=== PATIENT | female | born 1990 | race Caucasian/White ===

== ENCOUNTER 2017-05-31 22:56 | Observation (INO) | payer OTHER ==
[~2017-05-31] VITALS: Ht 160 cm; Wt 97.5 kg
[~2017-05-31 22:56] MED LIST: DOCU240C67 PO; FERR-53 PO; IBUP600T22 PO; IRON18TA2 PO; Lanolin TP; PREN-127 PO; TUCKS TP
[2017-05-31] MEDS ORDERED: OXYTOCIN 30 UNIT/D5LR 500 ML 500 ML IV PRN (23:07)
[2017-05-31] MEDS ORDERED: FAMOTIDINE(*) 20MG/50ML PREMIX 50 ML IVPB PRN (23:07)
[2017-05-31] MEDS ORDERED: LR(*) 1000 ML BAG 1,000 ML IV SCH (23:07)
[2017-05-31] MEDS ORDERED: ceFAZolin(*) 2GM/D5W 50ML 50 ML IVPB PRN (23:07)
[2017-05-31 23:10] VITALS: BP 141/85; Ht 160 cm; Wt 97.5 kg
[2017-05-31] MEDS ORDERED: LIDOCAINE 1% LOCAL 300 MG/30ML INJ PRN (23:10)
[2017-05-31] MEDS ORDERED: FLUSH 10 ML SYR IVP PRN (23:10)
[2017-05-31] MEDS ORDERED: METOCLOPRAMIDE 10 MG/2 ML SDV IVP PRN (23:10)
[2017-05-31] MEDS ORDERED: fentaNYL CITR 100 MCG/2 ML AMP IVP PRN (23:10)
[2017-05-31] MEDS ORDERED: LIDOCAINE/SOD BICARB 8.4% SYR SC PRN (23:10)
[2017-06-01 03:46] LABS: PLATELET COUNT, AUTOMATED 267 K/uL (150-450)
--- NOTE | 2017-06-01 06:41 | History & Physical ---
History of Present Illness EDC per LMP: May 31, 2017 Estimated Gestational Age: 40.1 Chief Complaint Contractions History of Present Illness 27yo at 40w1d presents for possible labor. She reports UCx since yesterday afternoon. Overnight they became regular and strong. She arrived to L&D around midnight and was damian every 3-5 minutes. These seem to have become less frequent and less strong recently. She denies LOF or VB. Good FM. No preeclampsia symptoms. History Patient's Blood Type: A Negative Rubella Status: Immune Group B Strep Screen: Negative Obstetrical History: G1: 39wk G2: Current Past Medical History: PMH: Migraines, ADHD PSH: T&A Allergies: Coded Allergies: No Known Drug Allergies (Unverified , 09/05/15) Social History: , present and supportive. No noxious habits. Med Rec Home Meds Reported Medications Vits W-Ca,Fe,Fa(<1MG) ( VITAMINS) 1 Each Tablet, 1 EACH PO DAILY, TAB 09/05/15 Discontinued Scripts [Lanolin] 7 GM OINT No Conflict Check, 0 GM TP PRN Y for DISCOMFORT FOR NURSING MOTHERS, TUBE Prov:JUANITA MENJIVAR MD 09/06/15 Ibuprofen (IBUPROFEN) 600 Mg Tablet, 600 MG PO Q6H Y for PAIN for 10 Days, TAB Prov:JUANITA MENJIVAR MD 09/06/15 Glycerin/Witch [place] (PREPARATION H) 1 Pkg Pad, 0 PKG TP PRN Y for PAIN for 10 Days, PAD Prov:JUANITA MENJIVAR MD 09/06/15 Ferrous Sulfate (FERROUS SULFATE) 325 Mg Tablet, 325 MG PO BID for 60 Days, TAB Prov:JUANITA MENJIVAR MD 09/06/15 Docusate Calcium (DOCUSATE CALCIUM) 240 Mg Capsule, 240 MG PO BID for 10 Days, CAPSULE Prov:JUANITA MENJIVAR MD 09/06/15 Review of Systems Constitutional: No Fever Eyes: No Vision Change Cardiovascular: No Chest Pain Respiratory: No Shortness of Breath, No Cough Gastrointestinal: No Nausea, No Vomiting, No Diarrhea Genitourinary: No Dysuria Psychiatric: No Depression Exam General Exam Vital Signs Vital Signs Date Time Temp Pulse Resp B/P (MAP) Pulse Ox O2 Delivery O2 Flow Rate FiO2 05/31/17 23:10 98.1 107 20 141/85 (103) 91 Room Air General Apperance: Alert/Awake/No Acute Distress Neuro: No Gross deficits Eyes: Normal Extraocular Movement & Vison Cardiovascular: Regular Rate and Rhythm Respiratory: No Respiratory Distress Abdomen: Gravid - Non-Tender : Normal Musculoskeletal: No Weakness/Pain Extremities: No Cyanosis,Clubbing or Edema Integumentary: Skin Intact without Lesions or Rash Psychological: Alert & Oriented X3, Appropriate Mood & Affect Cervical Dialation: 4 Cervical Effacement (%): 50 Cervical Consistency: Soft Cervical Position: Mid Station: -1 Presentation: Vertex Uterine Contractions(Q min): 7 Uterine Contraction Strength: Moderate UC Resting Tone: Soft Fetus Feeling Movement?: Yes FHT Category: I Medical Decision Making Data Points Result Diagram: 06/01/17 0330 Pre-Admit Course Medical Record Review: Yes VTE Prophylasis: Adult Deep Vein Thrombosis/Pulmonary: No Pharmacological Contraindicati: Pt at Low Risk for VTE Mechanical Contraindications: Pt at Low Risk for VTE Assessment and Plan Problems: (1) Uterine contractions during Assessment & Plan: 27yo at 40w1d here for possible labor. Her contractions have spaced out. Will monitor this morning. If her contractions subside and her FHT are reassuring, will consider discharge. Otherwise, if she transitions will anticipate . (2) 40 weeks gestation of JOSE JUAREZ MD Jun 01, 2017 06:40
--- NOTE | 2017-06-01 19:44 | Labor Progress Note ---
Labor Subjective Progress Notes Subjective At 9:30AM today, the patient requested to be discharged to home since her contractions slowed down significantly. She denied VB, LOF. Reported good FM. She had no other concerns, except that she wanted to be considered for induction later this week. Labor Objective Vital Signs Vital Signs Date Time Temp Pulse Resp B/P (MAP) Pulse Ox O2 Delivery O2 Flow Rate FiO2 05/31/17 23:10 98.1 107 20 141/85 (103) 91 Room Air Cervical Dialation: 4 Cervical Effacement (%): 50 Cervical Consistency: Soft Cervical Position: Posterior Station: -1 Presentation: Vertex Uterine Contractions(Q min): 10 Fetus FHT Category: I Other Result Diagram: 06/01/17 0330 Assessment and Plan Problems: (1) Uterine contractions during Assessment & Plan: Pt's contractions slowed down significantly and were no longer painful. She requested discharge to home. She also would like to be set up for induction on 06/06/17. RN was going to follow up on organizing this tomorrow during the work week. Labor precautions discussed. (2) 40 weeks gestation of Copies to: LORELEI DREW MD, KIM N MD Jun 01, 2017 19:44
== END 2017-06-01 10:05 | disposition home or self-care (01) ==
LOC: OB 22:56 → INTOOBSV 22:56 → OB 22:56 → UNDOADMOB 22:56 → UNDODISOB 06-01 10:05
PROVIDERS: ADMIT Obstetrics & Gynecology; ATTEND Obstetrics & Gynecology
DX: O47.1 False labor at or after 37 completed weeks of gestation (principal); Z3A.40 40 weeks gestation of pregnancy
CPT/HCPCS: 85025; 86850; 86900; 86901; G0378; G0379

== ENCOUNTER 2017-06-02 23:24 | Inpatient (IN) | payer OTHER ==
[~2017-06-02] VITALS: Ht 160 cm; Wt 97.5 kg
[2017-06-02] MEDS ORDERED: LR(*) 1000 ML BAG 1,000 ML IV PRN (23:25)
[2017-06-02] MEDS ORDERED: FAMOTIDINE(*) 20MG/50ML PREMIX 50 ML IVPB PRN (23:27)
[2017-06-02] MEDS ORDERED: ceFAZolin(*) 2GM/D5W 50ML 50 ML IVPB PRN (23:27)
[2017-06-02] MEDS ORDERED: OXYTOCIN 30 UNIT/D5LR 500 ML 500 ML IV PRN (23:27)
[2017-06-02] MEDS ORDERED: METOCLOPRAMIDE 10 MG/2 ML SDV IVP PRN (23:30)
[2017-06-02] MEDS ORDERED: LIDOCAINE 1% LOCAL 300 MG/30ML INJ PRN (23:30)
[2017-06-02] MEDS ORDERED: LIDOCAINE/SOD BICARB 8.4% SYR SC PRN (23:30)
[2017-06-02] MEDS ORDERED: fentaNYL CITR 100 MCG/2 ML AMP IVP PRN (23:30)
[2017-06-02] MEDS ORDERED: OXYTOCIN 10 UNIT/ML SDV ONE (23:39)
[2017-06-02] MEDS ORDERED: LR 500 ML BAG 500 ML IV ONE (23:40)
[2017-06-03] VITALS (7 sets, daily range): BP systolic 118–138; BP diastolic 66–78; Ht 160 cm; Wt 97.5 kg
[2017-06-03 00:13] LABS: PLATELET COUNT, AUTOMATED 293 K/uL (150-450)
--- NOTE | 2017-06-03 01:10 | History & Physical ---
History of Present Illness Age of Patient: 26 : 2 Para or TPAL: 1 EDC per LMP: May 31, 2017 EDC per U/S: Jun 06, 2017 Estimated Gestational Age: 40.3 Chief Complaint Painful contractions History of Present Illness Pt is a 26 y/o @ 40-4/7 weeks gestation by LMP who presents to L&D with a chief complaint of painful contractions. Pt initially reports contractions starting yesterday shortly after dinner. Reports initially a loss of amniotic fluid and then an intense urge to push. Pt denies any vaginal bleeding. Good movement. Denies want for an epidural. History Patient's Blood Type: A Negative Rubella Status: Immune Group B Strep Screen: Negative Obstetrical History: 2016 7#14oz Past Medical History: ADHD with 0 medications T&A 2010 Allergies: Coded Allergies: No Known Drug Allergies (Unverified , 09/05/15) Social History: , present and supportive. No noxious habits. Denies use of Alcohol, tobacco, or recreational drugs. Med Rec Home Meds Reported Medications Vits W-Ca,Fe,Fa(<1MG) ( VITAMINS) 1 Each Tablet, 1 EACH PO DAILY, TAB 09/05/15 Discontinued Scripts [Lanolin] 7 GM OINT No Conflict Check, 0 GM TP PRN Y for DISCOMFORT FOR NURSING MOTHERS, TUBE Prov:JUANITA MENJIVAR MD 09/06/15 Ibuprofen (IBUPROFEN) 600 Mg Tablet, 600 MG PO Q6H Y for PAIN for 10 Days, TAB Prov:JUANITA MENJIVAR MD 09/06/15 Glycerin/Witch [place] (PREPARATION H) 1 Pkg Pad, 0 PKG TP PRN Y for PAIN for 10 Days, PAD Prov:JUANITA MENJIVAR MD 09/06/15 Ferrous Sulfate (FERROUS SULFATE) 325 Mg Tablet, 325 MG PO BID for 60 Days, TAB Prov:JUANITA MENJIVAR MD 09/06/15 Docusate Calcium (DOCUSATE CALCIUM) 240 Mg Capsule, 240 MG PO BID for 10 Days, CAPSULE Prov:JUANITA MENJIVAR MD 09/06/15 Review of Systems All Systems Reviewed/Normal: Yes, Except as Noted Constitutional: No Fever, No Weight Loss, No Weight Gain, No Chills, No Night Sweats, No Other Neurological: No Syncope, No Confusion, No Weakness, No Dizziness, No Slurred Speech, No Other Eyes: No Vision Change, No Loss of Vision, No Photophobia, No Other ENT: No Hearing Loss, No Sinus Congestion, No Sore Throat, No Ear Ache, No Tinnitus, No Other Cardiovascular: No Chest Pain, No Palpitations, No Orthostatic Hypotension, No Other Respiratory: No Shortness of Breath, No Cough, No Wheezing, No Other Gastrointestinal: No Nausea, No Vomiting, No Diarrhea, No Dysphagia, No Constipation, No Early Satiety, No Hematemesis, No Hematochezia, No Melena, No Abdominal Pain, No Other Genitourinary: No Dysuria, No Hematuria, No Urinary Incontinence, No Other Musculoskeletal: No Pain, No Sprain, No Strain, No Impaired Mobility, No Other Psychiatric: No Depression, No Anxiety, No Other Exam General Exam General Apperance: Alert/Awake/No Acute Distress Neuro: No Gross deficits Eyes: Normal Extraocular Movement & Vison, PERRLA ENT: Normal Cardiovascular: Regular Rate and Rhythm Respiratory: No Respiratory Distress, Clear to Auscultation Abdomen: Gravid - Non-Tender : Normal Musculoskeletal: No Weakness/Pain Extremities: No Cyanosis,Clubbing or Edema Integumentary: Skin Intact without Lesions or Rash Psychological: Alert & Oriented X3, Appropriate Mood & Affect Cervical Dialation: 8 Cervical Effacement (%): 100 Cervical Consistency: Soft Cervical Position: Anterior Station: +1 Presentation: Vertex Uterine Contractions(Q min): 2 Uterine Contraction Strength: Moderate UC Resting Tone: Soft Fetus Feeling Movement?: Yes Estimated Weight(grams): 3800 Heart Tones: 130 Heart Tone Variabilty: Moderate FHT Accelerations: 15X15 FHT Decelerations: None FHT Category: I Medical Decision Making Data Points Result Diagram: 06/03/17 0000 Pre-Admit Course Medical Record Review: Yes VTE Prophylasis: Adult Deep Vein Thrombosis/Pulmonary: No Assessment and Plan TECHNICAL REPORT WRITER Assessment: Stable TECHNICAL REPORT WRITER Plan: Routine Labor/Induct Care Problems: (1) Active labor at term Assessment & Plan: Pt 8 cm's and doesn't desire an epidural. Expect shortly. (2) 40 weeks gestation of MERCEDHIREN VARELA Jun 03, 2017 01:10
--- NOTE | 2017-06-03 01:21 | Labor Progress Note ---
Labor Subjective Progress Notes Subjective Doing good. Breathing through contractions. Feeling Movement?: Yes Vaginal Discharge/Fluid: Bloody Show Labor Pain: Moderate Neurological: No Headache, No Other Eyes: No Visual Disturbances Labor Objective Vaginal Discharge/Fluid?: Clear Fluid (with amniotomy) Cervical Dialation: 9 Cervical Effacement (%): 100 Cervical Consistency: Soft Cervical Position: Anterior Station: 0 Presentation: Vertex Uterine Contractions(Q min): 2 Uterine Contraction Strength: Moderate UC Resting Tone: Soft Fetus Heart Tone Variabilty: Moderate FHT Accelerations: 15X15 FHT Decelerations: None FHT Category: I Other Result Diagram: 06/03/17 0000 Assessment and Plan REGIONAL MAINTENANCE MANAGER Assessment: Stable REGIONAL MAINTENANCE MANAGER Plan: Routine Labor/Induct Care Problems: (1) Active labor at term (2) 40 weeks gestation of Assessment & Plan: S/p Amniotomy. Continue expectant management. HIREN BLACKWOOD DO Jun 03, 2017 01:21
[2017-06-03] MEDS ORDERED: DIPHTH/TETANUS/ACEL. PERTUSSIS IM ONE (01:50)
[2017-06-03] MEDS ORDERED: INFLUENZA VIRUS VAC 0.5 ML SYR IM ONLY ONE (01:50)
[2017-06-03] MEDS ORDERED: BENZOCAINE 20% 60 ML BTL TP PRN (01:50)
[2017-06-03] MEDS ORDERED: ACETAMINOPHEN 325 MG TAB PO PRN (01:50)
[2017-06-03] MEDS ORDERED: GLYCERIN/WITCH HAZEL LEAF 1 PK TOP PRN (01:50)
[2017-06-03] MEDS ORDERED: LANOLIN OINT 7 GM TUBE TP PRN (01:50)
[2017-06-03] MEDS ORDERED: HYDROCORTISONE 2.5% CR 30GM TB PR PRN (01:50)
[2017-06-03] MEDS ORDERED: MAGNESIUM HYDROXIDE* 30ML UDCP PO PRN (01:50)
[2017-06-03] MEDS ORDERED: APAP/HYDROCODONE 325/5 TAB PO PRN (01:50)
[2017-06-03] MEDS ORDERED: MEASLES,MUMP,RUBELLA VAC 0.5ML SC ONE (01:50)
--- NOTE | 2017-06-03 01:59 | OB Delivery Note ---
Delivery Note Vaginal Delivery Type: Spont. Vaginal Delivery Delivery Date: Jun 03, 2017 Delivery Time: 01:24 Estimated Gestational Age(wks): 40.3 Length of Labor Stage I (hrs): 6 Length of Labor Stage II (hrs): .05 Labor Stage III (minutes): 8 Infant Sex: Male Weight (gms): 3095 (6#13oz) Apgars: 1 Minute (9), 5 Minute (9) Estimated Blood Loss: 400 Medical Support Specialist in Attendence: HIREN Hyde DO Jun 03, 2017 01:59
[2017-06-03] MEDS ORDERED: OXYTOCIN 30 UNIT/D5LR 500 ML 500 ML ONE (04:11)
[2017-06-03] MEDS ORDERED: OXYTOCIN 30 UNIT/D5LR 500 ML 500 ML IV PRN (04:25)
[2017-06-03] MEDS ORDERED: LR(*) 1000 ML BAG 1,000 ML ONE (05:44)
[2017-06-03] MEDS ORDERED: MISOPROSTOL 200 MCG TAB PO PRN (06:40)
[2017-06-03] MEDS ORDERED: HYDR2TAB4 PO (08:51)
[2017-06-03] MEDS: DOCUSATE CALCIUM 240 MG CAP PO SCH ×2 (08:51→21:37)
[2017-06-03] MEDS ORDERED: IBUP800T37 PO (08:51)
--- NOTE | 2017-06-03 08:51 | OB/GYN Progress Note ---
OB Subjective Progress Notes Subjective Pain controlled, Tolerating diet and activity. Baby . Increased lochia, massage improved. GI: NEG Nausea, NEG Vomiting : Voiding Well Pain: Mild OB Objective Physical Exam Vital Signs Date Time Temp Pulse Resp B/P (MAP) Pulse Ox O2 Delivery O2 Flow Rate FiO2 06/03/17 07:10 97.3 98 18 128/69 (88) 06/03/17 04:05 93 Room Air Intake and Output 06/04/17 07:00 Intake Total 600 ml Balance 600 ml Intake Oral 600 ml General Appearance: Alert/Awake/No Acute Distress Neurological: No Gross deficits Eyes: Normal Extraocular Movement & Vison, PERRLA Cardiovascular: Regular Rate and Rhythm Respiratory: No Respiratory Distress, Clear to Auscultation Abdomen: Fundus Firm Extremities: No Cyanosis,Clubbing or Edema, No Edema Integumentary: Skin Intact without Lesions or Rash Psychological: Alert & Oriented X3, Appropriate Mood & Affect Result Diagram: 06/03/17 0000 Assessment and Plan Problems: (1) Active labor at term (2) 40 weeks gestation of (3) care following vaginal delivery Assessment & Plan: Pain controlled, Tolerating diet and activity. Baby . Increased lochia, will give cytotec and massage. LORELEI DREW MD Jun 03, 2017 08:50
--- NOTE | 2017-06-03 08:53 | OB/GYN Discharge Summary ---
Discharge Summary Reason for Hosp/Final Diag: (1) Active labor at term (2) 40 weeks gestation of (3) care following vaginal delivery Hospital Course & Plan: vaginal delivery, on day 1, Pain controlled, Tolerating diet and activity. Baby . Increased lochia, will give cytotec and massage. [place] Vital Signs Vital Signs Date Time Temp Pulse Resp B/P (MAP) Pulse Ox O2 Delivery O2 Flow Rate FiO2 06/03/17 07:10 97.3 98 18 128/69 (88) 06/03/17 04:05 93 Room Air Weight (Pounds): 215 Result Diagram: 06/03/17 0000 Condition: Improved Discharge: Home, Self Skilled Nursing Meds Active Scripts Ibuprofen (IBUPROFEN) 800 Mg Tablet, 1 TAB PO Q8H, #30 TAB 0 Refills Take with food every 8 hours. Prov:LORELEI DREW MD 06/03/17 Hydromorphone Hcl (HYDROMORPHONE HCL) 2 Mg Tablet, 2-4 MG PO Q4H for PAIN, #20 TAB 0 Refills Prov:LORELEI DREW MD 06/03/17 Reported Medications Vits W-Ca,Fe,Fa(<1MG) ( VITAMINS) 1 Each Tablet, 1 EACH PO DAILY, TAB 09/05/15 Discontinued Scripts [Lanolin] 7 GM OINT No Conflict Check, 0 GM TP PRN Y for DISCOMFORT FOR NURSING MOTHERS, TUBE Prov:JUANITA MENJIVAR MD 09/06/15 Ibuprofen (IBUPROFEN) 600 Mg Tablet, 600 MG PO Q6H Y for PAIN for 10 Days, TAB Prov:JUANITA MENJIVAR MD 09/06/15 Glycerin/Witch [place] (PREPARATION H) 1 Pkg Pad, 0 PKG TP PRN Y for PAIN for 10 Days, PAD Prov:JUANITA MENJIVAR MD 09/06/15 Ferrous Sulfate (FERROUS SULFATE) 325 Mg Tablet, 325 MG PO BID for 60 Days, TAB Prov:JUANITA MENJIVAR MD 09/06/15 Docusate Calcium (DOCUSATE CALCIUM) 240 Mg Capsule, 240 MG PO BID for 10 Days, CAPSULE Prov:JUANITA MENJIVAR MD 09/06/15 [facility] [phone] Follow up in: 6 wks PP or PO Discharge Diet: As Tolerates Discharge Activity: Pelvic Rest Copies to: LORELEI DREW MD, JOHN MD Jun 03, 2017 08:53
[2017-06-03] MEDS ORDERED: IBUPROFEN 800 MG TAB PO SCH (09:00)
[2017-06-03] MEDS: IBUPROFEN 800 MG TAB PO SCH ×2 (09:59→18:08)
--- NOTE | 2017-06-03 16:01 | DELIVERY NOTE ---
DELIVERY DATE: June 03, 2017 SURGEON: Harvinder Peña DO ANESTHESIA: None. PREOPERATIVE DIAGNOSES 1. A 27-year-old 2, para 1 at 40-3/7 weeks gestation. 2. Labor. POSTOPERATIVE DIAGNOSES 1. A 27-year-old 2, para 1 at 40-3/7 weeks gestation. 2. Labor. 3. Delivered. PROCEDURE Spontaneous vaginal delivery. FINDINGS Liveborn male infant at 0124 hours on June 03, 2017 with Apgars of 9 and 9 with weight 3095 gm, 6#13oz. Three vessel cord, intact placenta over an intact perineum, left occiput anterior. ESTIMATED BLOOD LOSS 400 mL PATHOLOGY None. COMPLICATIONS None. CONDITION Stable times two. Mother and infant remained in the LDRP. COUNTS Correct times two for all needles, laps, sponges and instruments. LABOR SUMMARY Patient is a 27-year-old 2, para 1 at 40-3/7 weeks gestation who presented to Labor and Delivery with the chief complaint of painful contractions. Reported contractions starting some time around 6:00 p.m. on June 02, 2017. Contractions continued and got closer and closer together with contractions being noted two minutes apart. On initial presentation she was noted to be 6 cm with what appeared to be an intact amnion. Patient continued to progress spontaneously and eventually did undergo amniotomy at 8 cm with clear amniotic fluid, and quickly progressed to complete, at which time the delivery team was called and assembled. DELIVERY SUMMARY With patient in the squatting position during contraction maternal effort easily delivered the infant's head over an intact perineum, followed by the anterior shoulder with gentle backward motion, posterior shoulder with gentle forward motion, with the remainder of the infant's body delivered spontaneously. At this point mom was out of squatting position and the infant was placed on the maternal abdomen where it was vigorously cleaned and dried. After two and a half minutes post delivery the cord was clamped times two and cut. The was continued to be attended by the nursing staff. Cord blood gases obtained. Placenta delivered spontaneously with gentle cord traction. Oxytocin was infused to help with uterine tone. The uterus was massaged and deemed firm. Upon inspection of the perineum, vagina, cervix and labia it was noted that there were no lacerations. At this point the patient was clean, the labor bed was reassembled and the mother and were reunited. [facility]
== END 2017-06-03 21:55 | disposition home or self-care (01) | DRG 775 ==
LOC: OB 23:24
PROVIDERS: ADMIT Student in an Organized Health Care Education/Training Program; ATTEND Student in an Organized Health Care Education/Training Program
PROC: 10E0XZZ Delivery of Products of Conception, External Approach (ICD-10-PCS; principal; 2017-06-03)
PROC: 10907ZC Drainage of Amniotic Fluid, Therapeutic from Products of Conception, Via Natural or Artificial Opening (ICD-10-PCS; 2017-06-03)
PROC: 3E0334Z Introduction of Serum, Toxoid and Vaccine into Peripheral Vein, Percutaneous Approach (ICD-10-PCS; 2017-06-03)
DX: O36.0130 Maternal care for anti-D [Rh] antibodies, third trimester, not applicable or unspecified (principal); Z37.0 Single live birth; Z3A.40 40 weeks gestation of pregnancy
CPT/HCPCS: 36415; 85025; 85027; 85461; 86850; 86900; 86901; J2590; J2791; J7120